=== PATIENT | male | born 1980 | race Hispanic/Latino ===

== ENCOUNTER 2018-06-11 00:35 | Emergency (ER) | payer SELFPAY ==
[2018-06-11 01:19] LABS: #Basophils 0.1 thou/uL (0.0-0.2); #Eosinphils 0.1 thou/uL (0.0-0.7); #Lymphocytes 1.8 thou/uL (1.20-3.40); #Monocytes 0.7 thou/uL (0.11-0.59); #Neutrophils 3.9 thou/uL (1.40-6.50); %Basophils 1.1 % (0.0-1.0); %Eosinophils 1.9 % (0.0-10.0); %Lymphocytes 27.8 % (21.0-51.0); %Monocytes 9.8 % (0.0-10.0); %Neutrophils 59.4 % (42.0-75.0); Hemoglobin 15.5 g/dL (14.0-18.0); Mean Corpuscular HGB CONC 33.2 g/dL (32.0-36.0); Mean Corpuscular Hemoglobin 31.4 pg (27.0-31.0); Mean Corpuscular Volume 94.5 fL (78.0-98.0); Mean Platelet Volume 8.5 fL (7.4-10.4); Platelet Count 267 thou/uL (130-400); RBC Distribution Width 12.1 % (11.5-14.5); Red Blood Cell (RBC) Count 4.94 mill/uL (4.70-6.10); White Blood Cell (WBC) Count 6.6 thou/uL (4.8-10.8)
[2018-06-11] MEDS ORDERED: Metoclopramide HCl 10 MG/2 ML VIAL ONE (01:19)
[2018-06-11] MEDS ORDERED: diphenhydrAMINE 50 MG/ML VIAL ONE (01:19)
[2018-06-11 01:54] LABS: CKMB 0.9 ng/mL (0-6.6); Troponin I Less than 0.010 ng/mL (< 0.028)
[2018-06-11 02:10] LABS: ALT (SGPT) 78 U/L (8-55); AST (SGOT) 44 U/L (5-34); Albumin 4.2 g/dL (3.5-5.0); Alkaline Phosphatase 75 U/L (40-150); Anion Gap 13 mmol/L (10-20); BUN (Urea Nitrogen) 11 mg/dL (8.9-20.6); Bilirubin, Total 0.3 mg/dL (0.2-1.2); CK (CPK) 188 U/L (30-200); Calc. Creatinine Clearance 0 mL/min (70-130); Calcium 8.6 mg/dL (7.8-10.44); Carbon Dioxide 20 mmol/L (22-29); Chloride 106 mmol/L (98-107); Estimated GFR-MDRD Greater than 90; Globulin 3.6 g/dL (2.4-3.5); Glucose 100 mg/dL (70-105); Potassium 4.3 mmol/L (3.5-5.1); Protein, Total 7.8 g/dL (6.0-8.3); Sodium 135 mmol/L (136-145)
--- NOTE | 2018-06-11 09:58 | CT ---
PRELIMINARY REPORT/[facility]/EMERGENTY AFTER-HOURS PROCEDURE CT Head Without Intravenous Contrast EXAM DATE/TIME: 06/11/2018 1:52 AM CLINICAL HISTORY: 38 years old, male; Signs and symptoms; Dizziness; Patient HX: PT reports dizziness onset yesterday. TECHNIQUE: Axial computed tomography images of the head/brain without intravenous contrast. COMPARISON: No relevant prior studies available. FINDINGS: Brain: No acute infarction, mass, or hemorrhage. Ventricles: Normal. Bones/joints: Normal. Sinuses: Ethmoid sinus disease. Mastoid air cells: Normal as visualized. Soft tissues: Normal. IMPRESSION: No acute intracranial abnormality. Thank you for allowing us to participate in the care of your patient. Dictated and Authenticated by: Hernando Claudio MD 06/11/2018 2:37 AM Central Time ([place] & [place]) FINAL REPORT EMERGENT AFTER HOURS CT OF BRAIN PERFORMED WITHOUT CONTRAST ENHANCEMENT: HISTORY: Dizziness and syncope. FINDINGS: The ventricular and cisternal system is within normal limits. There are no signs of intracerebral he morrhage or extraaxial fluid collections. Mastoid air cells are clear. There is mucosal change in t he ethmoid and maxillary sinuses. IMPRESSION: 1. No acute intracranial abnormalities. 2. This report is in agreement with the temporary report issued by [facility]. POS: [facility]
== END 2018-06-11 03:04 | disposition home or self-care (01) ==
LOC: ERS 00:35
DX: R42 Dizziness and giddiness (principal)
CPT/HCPCS: 70450; 80053; 82553; 84484; 85025; 93005; 96365; 96375; J1200; J2765

== ENCOUNTER 2021-08-16 10:37 | Emergency (ER) | payer SELFPAY ==
[2021-08-16] MEDS ORDERED: HYDROcodone/Acetaminophen 10/325 mg Tablet ONE (12:35)
== END 2021-08-16 12:35 | disposition home or self-care (01) ==
LOC: ERS 10:37
DX: S42.331A Displaced oblique fracture of shaft of humerus, right arm, initial encounter for closed fracture (principal); W10.9XXA Fall (on) (from) unspecified stairs and steps, initial encounter